=== PATIENT | female | born 1995 | race Hispanic/Latino ===

== ENCOUNTER 2023-03-03 12:30 | Outpatient (CLI) | payer OTHER | END 2023-03-03 12:31 | disposition home or self-care (01) | LOC: CSHULT 12:30 | PROVIDERS: ATTEND Family Medicine | DX: O09.892 Supervision of other high risk pregnancies, second trimester (principal); Z3A.19 19 weeks gestation of pregnancy | CPT/HCPCS: 76805 ==

== ENCOUNTER 2023-07-04 01:14 | Inpatient (IN) | payer BC, MEDICAID ==
[2023-07-04 01:33] VITALS: BMI 41.3
[2023-07-04] MEDS ORDERED: Misoprostol 200 MCG TAB PR PRN (01:53)
[2023-07-04] MEDS ORDERED: Promethazine HCl 25 MG/ML VIAL IM PRN ×2 (01:53→08:07)
[2023-07-04] MEDS ORDERED: Carboprost 250 MCG/ML AMP IM PRN (01:53)
[2023-07-04] MEDS ORDERED: Docusate 100 MG CAP PO PRN (01:53)
[2023-07-04] MEDS ORDERED: Acetaminophen 500 MG TAB PO PRN (01:53)
[2023-07-04] MEDS ORDERED: Methylergonovine 0.2 MG/ML VIAL IM PRN (01:53)
[2023-07-04] MEDS ORDERED: Bicitra 30 ML UDCUP PO PRN (01:53)
[2023-07-04] MEDS ORDERED: Famotidine/PF 20 mg/2ml Vial SLOW IVP PRN (01:53)
[2023-07-04] MEDS ORDERED: Ondansetron PF 4 MG/2 ML Vial IVP PRN ×2 (01:53→08:07)
[2023-07-04] MEDS ORDERED: Tranexamic Acid 1,000 MG/10 ML VIAL IVP PRN (01:53)
[2023-07-04] MEDS ORDERED: Diphenoxylate HCl/Atropine Tablet PO PRN ×2 (01:53→20:15)
[2023-07-04] MEDS ORDERED: hydrALAZINE 20 MG/ML VIAL SLOW IVP PRN ×2 (01:53→07:38)
[2023-07-04] MEDS ORDERED: CEFAZOLIN 2 GM in Sodium Chloride 0.9% 100 ML IVPB SCH (02:00)
[2023-07-04] MEDS ORDERED: Azithromycin 500 MG in Sodium Chloride 0.9% 250 ML 250 ML IVPB SCH (02:00)
[2023-07-04] MEDS ORDERED: NS w/ Oxytocin 30 units 500 ML IV SCH (02:00)
[2023-07-04 02:46] LABS: Hematocrit 38.2 % (34.9-44.5); Hemoglobin 12.9 g/dL (12.0-15.5); Mean Corpuscular HGB CONC 33.8 g/dL (32.0-36.0); Mean Corpuscular Hemoglobin 28.4 pg (27.0-33.0); Mean Platelet Volume 11.2 fl (7.4-10.4); Platelet Count 201 10x3/uL (150-450); RBC Distribution Width 14.1 % (11.5-14.5); Red Blood Cell (RBC) Count 4.55 10x6/uL (3.90-5.03); White Blood Cell (WBC) Count 14.3 10x3/uL (3.5-10.5)
[2023-07-04 03:40] LABS: HBSAg Index 0.15 S/CO (0-0.99); Hep B Surf Ag - L&D Non-Reactive S/CO (NonReactive); Syphilis Antibody Nonreactive (Nonreactive); Syphilis Antibody Index 0.08 S/CO (<1.00 Non-Reactive)
[2023-07-04] MEDS ORDERED: PHENYLEPHRINE-NS 100 MCG/ML 10 ML SYRINGE ONE (05:43)
[2023-07-04] MEDS ORDERED: Oxytocin 10 UNITS/ML VIAL ONE (05:43)
[2023-07-04] MEDS ORDERED: Morphine PF 10 MG/10 ML VIAL ONE (05:44)
[2023-07-04] MEDS ORDERED: Ondansetron PF 4 MG/2 ML Vial ONE (05:44)
[2023-07-04] MEDS ORDERED: Lidocaine 1% (PF) 30 ML VIAL ONE (06:22)
[2023-07-04 07:26] LABS: RapidComm Collect By CBN; pH (Cord, venous) 7.146 (7.250-7.350)
[2023-07-04 07:27] LABS: RapidComm Collect By CBN
[2023-07-04] MEDS ORDERED: Phenylephrine 10 MG/ML VIAL ONE (07:30)
[2023-07-04] MEDS ORDERED: Boostrix 0.5 ML (Tdap) VIAL (>/=7 yrs of age) IM ONE (07:38)
[2023-07-04] MEDS ORDERED: Acetaminophen 325 MG TAB PO PRN (07:38)
[2023-07-04] MEDS ORDERED: HYDROcodone/Acetaminophen 5/325 mg Tablet PO PRN (07:38)
[2023-07-04] MEDS ORDERED: Promethazine HCl 25 MG SUPP PR PRN (08:07)
[2023-07-04] MEDS ORDERED: Naloxone HCl 0.4 mg/ml Vial IV PRN (08:07)
[2023-07-04] MEDS ORDERED: Ondansetron HCl/PF 4 MG/2 ML Vial IVP PRN (08:07)
[2023-07-04] MEDS ORDERED: L&D-HYDROmorphone 0.5 MG/0.5 ML SYRINGE SLOW IVP PRN (08:07)
[2023-07-04] MEDS ORDERED: Moisturizing Cream (Eucerin) 113 GM JAR TOP PRN (08:07)
[2023-07-04] MEDS ORDERED: Meperidine HCl/PF 25 MG/ML VIAL SLOW IVP PRN (08:07)
[2023-07-04] MEDS ORDERED: Naloxone HCl 0.4 mg/ml Vial IVP PRN ×2 (08:07)
[2023-07-04] MEDS ORDERED: diphenhydrAMINE 50 MG/ML VIAL IVP PRN (08:07)
[2023-07-04] MEDS ORDERED: Fentanyl 50 MCG/1 ML VIAL SLOW IVP PRN (08:07)
[2023-07-04] MEDS ORDERED: Ketorolac Tromethamine 30 MG/ML VIAL IVP SCH (08:15)
[2023-07-04] MEDS ORDERED: Communication Order-Pharmacy FS SCH (08:15)
[2023-07-04] MEDS: Lactated Ringer's 1,000 ML IV SCH ×2 (10:44→15:17)
[2023-07-04] MEDS: Ketorolac Tromethamine 30 MG/ML VIAL IVP PRN ×2 (10:45→17:25)
[2023-07-04] MEDS ORDERED: Methylergonovine 0.2 MG/ML VIAL ONE (12:44)
[2023-07-04] MEDS: Ibuprofen 800 MG TAB PO SCH (15:21)
[2023-07-05] MEDS: Ibuprofen 800 MG TAB PO SCH ×4 (00:37→21:18)
[2023-07-05 04:21] LABS: Hematocrit 31.3 % (34.9-44.5); Hemoglobin 10.3 g/dL (12.0-15.5); Mean Corpuscular HGB CONC 32.9 g/dL (32.0-36.0); Mean Corpuscular Hemoglobin 28.4 pg (27.0-33.0); Mean Corpuscular Volume 86.2 fl (81.6-98.3); Mean Platelet Volume 11.2 fl (7.4-10.4); Platelet Count 177 10x3/uL (150-450); RBC Distribution Width 14.3 % (11.5-14.5); Red Blood Cell (RBC) Count 3.63 10x6/uL (3.90-5.03); White Blood Cell (WBC) Count 15.4 10x3/uL (3.5-10.5)
[2023-07-05] MEDS: Ketorolac Tromethamine 30 MG/ML VIAL IVP PRN (06:21)
[2023-07-05] MEDS: HYDROcodone/Acetaminophen 5/325 mg Tablet PO PRN ×5 (06:21→22:37)
[2023-07-05] MEDS: Simethicone Chewable 80 MG TAB PO PRN (16:19)
[2023-07-05] MEDS: Ferrous Sulfate 325 MG TAB PO SCH (21:17)
[2023-07-05] MEDS: Docusate 100 MG CAP PO SCH (21:18)
[2023-07-06] MEDS: HYDROcodone/Acetaminophen 5/325 mg Tablet PO PRN ×5 (02:32→22:24)
[2023-07-06] MEDS: Ibuprofen 800 MG TAB PO SCH ×3 (05:13→22:24)
[2023-07-06] MEDS: Prenatal Vitamin 1 TAB PO SCH (07:49)
[2023-07-06] MEDS: Docusate 100 MG CAP PO SCH ×2 (07:49→22:25)
[2023-07-06] MEDS: Simethicone Chewable 80 MG TAB PO PRN ×3 (07:49→22:25)
[2023-07-06] MEDS: Ferrous Sulfate 325 MG TAB PO SCH ×2 (09:22→21:00)
[2023-07-07] MEDS: HYDROcodone/Acetaminophen 5/325 mg Tablet PO PRN ×2 (02:48→12:58)
[2023-07-07] MEDS: Ibuprofen 800 MG TAB PO SCH ×2 (05:56→12:58)
[2023-07-07] MEDS: Prenatal Vitamin 1 TAB PO SCH (09:36)
[2023-07-07] MEDS: Docusate 100 MG CAP PO SCH (09:36)
[2023-07-07] MEDS: Ferrous Sulfate 325 MG TAB PO SCH (09:37)
[2023-07-07 09:50] VITALS: BP 112/62; TEMP 97.9
== END 2023-07-07 15:00 | disposition home or self-care (01) | DRG 786 ==
LOC: CSHLD/OP 01:14 → CSHLD 01:58 → CSHPP 10:20
PROVIDERS: ADMIT Family Medicine; ATTEND Family Medicine
PROC: 10D00Z1 Extraction of Products of Conception, Low, Open Approach (ICD-10-PCS; principal; 2023-07-04)
DX: O42.013 Preterm premature rupture of membranes, onset of labor within 24 hours of rupture, third trimester (principal); O60.14X0 Preterm labor third trimester with preterm delivery third trimester, not applicable or unspecified; O72.2 Delayed and secondary postpartum hemorrhage; Z3A.36 36 weeks gestation of pregnancy; Z37.0 Single live birth; O34.211 Maternal care for low transverse scar from previous cesarean delivery; Z90.89 Acquired absence of other organs; O99.62 Diseases of the digestive system complicating childbirth; K66.0 Peritoneal adhesions (postprocedural) (postinfection); O26.893 Other specified pregnancy related conditions, third trimester; Z67.41 Type O blood, Rh negative
CPT/HCPCS: 36415; 51702; 82805; 85027; 86780; 86850; 86870; 86900; 86901; 87340; 99285; J0456; J1885; J2210; J2274; J2370; J2405; J2590; J3490; J7050; J7120